=== PATIENT | female | born 1980 | race Caucasian/White ===

== ENCOUNTER 2025-01-23 17:06 | Emergency (ER) | payer MEDICAID ==
[~2025-01-23] VITALS: Ht 167.6 cm; Wt 68.2 kg
[~2025-01-23 17:06] MED LIST: LACT1CAP26 PO; NO HOME MEDS
[2025-01-23 17:22] VITALS: BP 146/88; PULSE 81; RESP 14; O2SAT 100
[2025-01-23] MEDS ORDERED: IBUP-864 PO (18:19)
[2025-01-23] MEDS ORDERED: CLIN-197 PO (18:19)
--- NOTE | 2025-01-23 18:21 | Physician Documentation ---
HPI ~ General Chief Complaint: Tooth Problem Stated Complaint: TOOTH PAIN Time Seen by MD: 18:09 Primary Medical Doctor: jeanette watson in History of Present Illness HPI Comment 34-year-old female with complaints of tooth pain and awaiting dental appointment. No difficulty breathing or swallowing pain primarily to the left and right lower teeth Medication Reconciliation Allergies: Coded Allergies: prochlorperazine edisylate (Verified Allergy, Unknown, 01/23/25) prochlorperazine maleate (Verified Allergy, Unknown, 01/23/25) sulfamethoxazole (Verified Allergy, Unknown, 01/23/25) trimethoprim (Verified Allergy, Unknown, 01/23/25) Scheduled Clindamycin HCl (Clindamycin HCl), 1 CAP PO Q12H Ibuprofen (Ibu), 1 TAB PO Q8H Lactobacillus Rhamnosus (Culturelle), 10,000 MMU PO BID Miscellaneous Medications Home Med List (No Home Medications), 1, (Reported) Past Medical History Past Medical History: No Pertinent History Past Surgical History: no surgical history Alcohol Use: None Drug Use: none Lives with: S/O, Family Lives In: Home Occupation: unemployed Review of Systems All Other Systems at this time: Reviewed and Negative ENT: Reports: see HPI Physical Exam Vital Signs: Temperature: 99.0, Heart Rate: 81, Respiratory Rate: 14, BP: 146/88, Pulse Oximetry: 100, Weight: 68.180 Oxygen Flow Rate: 0 General Appearance: alert, WD/WN, no apparent distress EENT General: moist mucous membranes Mouth/Throat: pharynx normal, dental tenderness; No: mandibular swelling, maxillary swelling, pharynx swelling, pharynx tenderness, tongue swollen, tonsillar exudate Palate: normal inspection Teeth/Gums: missing teeth, tender, gingiva redness Face: normal inspection; No: swelling Head: normal inspection; No: swelling Progress Results/Orders Results/Orders Vital Signs 01/23/25 01/23/25 17:22 18:25 Temp 99.0 99.0 Pulse 81 Resp 14 B/P (MAP) 146/88 Pulse Ox 100 O2 Flow Rate 0 Medical Decision Making Findings Multiple caries, poor dentition. No obvious abscess antibiotics prescribed. Departure Time of Disposition: 18:15 Disposition: 01 HOME / SELF CARE / HOMELESS Impression: Primary Impression: Dental abscess Additional Impression: Dental caries Condition: Stable Discharge Instructions: Dental Caries, Adult Additional Instructions: Abx as prescribed and call for dental appointments Referrals: NO PRIMARY CARE PROVIDER (PCP) Prescriptions Ibuprofen (Ibu) 800 Mg Tablet 1 TAB PO Q8H for 7 Days, #21 TAB 0 Refills Prov: FADIA WILKINS NP 01/23/25 Clindamycin HCl (Clindamycin HCl) 300 Mg Capsule 1 CAP PO Q12H for 7 Days, #14 CAP Prov: FADIA WILKINS NP 01/23/25 Education Educated: Patient Educated regarding: diagnosis, treatment, need for follow up Signature Scribe Signature: No scribe Attestation: The note accurately reflects work and decisions made by me.Fadia GRIMM 01/23/25 18:19 FADIA WILKINS NP Jan 23, 2025 18:21
[2025-01-23 18:25] VITALS: TEMP 99
== END 2025-01-23 18:28 | disposition home or self-care (01) ==
LOC: ER 17:07
DX: K04.7 Periapical abscess without sinus (principal); K02.9 Dental caries, unspecified; Z88.2 Allergy status to sulfonamides; Z88.8 Allergy status to other drugs, medicaments and biological substances; Z79.899 Other long term (current) drug therapy
CPT/HCPCS: 99283

== ENCOUNTER 2025-02-07 14:22 | Emergency (ER) | payer MEDICAID ==
[~2025-02-07] VITALS: Ht 167.6 cm; Wt 61.0 kg
[~2025-02-07 14:22] MED LIST changes: +IBUP-864 PO
[2025-02-07 14:30] VITALS: BP 188/89; PULSE 87; RESP 15; TEMP 98; O2SAT 98
[2025-02-07] MEDS ORDERED: AMOX-117 PO (14:40)
--- NOTE | 2025-02-07 14:40 | Physician Documentation ---
History of Present Illness ~ Chief Complaint: Abscess Stated Complaint: ABSCESS Time Seen by MD: 14:36 Primary Medical Doctor: jeanette walk in Source: patient, family Mode of Arrival: POV Exam Limitations: no limitations HPI 44 yo female with continued dental pain and facial swelling, does not have dental apointment . Has taken clyndamycin and amox. she is on last day of amox. denies difficulty breathing or swallowing Tetanus Within 5 Years: Yes Medication Reconciliation Allergies: Coded Allergies: prochlorperazine edisylate (Verified Allergy, Unknown, 01/23/25) prochlorperazine maleate (Verified Allergy, Unknown, 01/23/25) sulfamethoxazole (Verified Allergy, Unknown, 01/23/25) trimethoprim (Verified Allergy, Unknown, 01/23/25) Scheduled Amox Tr/Potassium Clavulanate (Augmentin 875-125 Tablet), 1 TAB PO Q12H Ibuprofen (Ibu), 1 TAB PO Q8H Ibuprofen (Ibu), 1 TAB PO Q8H Lactobacillus Rhamnosus (Culturelle), 10,000 MMU PO BID Miscellaneous Medications Home Med List (No Home Medications), 1, (Reported) Past Medical History Past Medical History: No Pertinent History Past Surgical History: no surgical history Alcohol Use: None Drug Use: none Lives with: S/O, Family Lives In: Home Occupation: unemployed Review of Systems All Other Systems at this time: Reviewed and Negative ENT: Reports: see HPI Physical Exam Vital Signs: Temperature: 98.0, Source: Temporal, Heart Rate: 87, Respiratory Rate: 15, BP: 188/89, Pulse Oximetry: 98, Weight: 61.000 General Appearance: alert, WD/WN, no apparent distress EENT: moist mucous membranes Neck: normal inspection, full range of motion, supple Respiratory: no respiratory distress Chest: no accessory muscle use Progress Results/Orders Results/Orders Vital Signs 02/07/25 14:30 Temp 98.0 Pulse 87 Resp 15 B/P (MAP) 188/89 Pulse Ox 98 Medical Decision Making Findings Abuse Risk Assessment: No evidence of dangerous home or environment. Patient's symptoms seem consistent with the described history. Dental abscess tender to tap multiple teeth poor dentition antibiotics prescribed encouraged to follow up with dental as soon as possible Departure Time of Disposition: 14:38 Disposition: 01 HOME / SELF CARE / HOMELESS Impression: Primary Impression: Dental abscess Additional Impression: Dental caries Condition: Stable Discharge Instructions: Dental Abscess, [place] Additional Instructions: Make dental appointment now. Take antibiotics as prescribed. Referrals: NO PRIMARY CARE PROVIDER (PCP) Prescriptions Ibuprofen (Ibu) 800 Mg Tablet 1 TAB PO Q8H for 7 Days, #21 TAB 0 Refills Prov: FADIA CARVER NP 02/07/25 Amox Tr/Potassium Clavulanate (Augmentin 875-125 Tablet) 1 Each Tablet 1 TAB PO Q12H for 10 Days, #20 TAB Prov: FADIA CARVER RESIDENTIAL CAREGIVER 02/07/25 Education Educated: Patient Educated regarding: diagnosis, treatment, need for follow up Signature Scribe Signature: no scribe Attestation: The note accurately reflects work and decisions made by me.Fadia Carver - ALFA 02/07/25 14:40 FADIA CARVER NP Feb 07, 2025 14:40
== END 2025-02-07 14:52 | disposition home or self-care (01) ==
LOC: ER 14:23
DX: K04.7 Periapical abscess without sinus (principal); K02.9 Dental caries, unspecified; Z88.2 Allergy status to sulfonamides; Z88.8 Allergy status to other drugs, medicaments and biological substances; Z79.899 Other long term (current) drug therapy; Z56.0 Unemployment, unspecified
CPT/HCPCS: 99283